=== PATIENT | female | born 1990 | race Caucasian/White ===

== ENCOUNTER 2016-06-08 18:39 | Emergency (ER) | payer BC, MEDICAID ==
[2016-06-08 19:04] VITALS: BP 140/96
[2016-06-08] MEDS ORDERED: Lidocaine 2% PF * 5 ML VIAL ONE (19:40)
--- NOTE | 2016-06-08 20:11 | UC ---
Laceration HPI - HPI Summary HPI Summary: 1800 WAS DRILLING HOLE AND DRILL KICKED BACK HIT LEFT UPPER LIP, HAS LACERATION - History Of Current Complaint Chief Complaint: UCLaceration Stated Complaint: LIP LACERATION Time Seen by Provider: 06/08/16 18:53 Hx Obtained From: Patient, Family/Butter Melter Laceration Location: Face Mechanism Of Injury: Blunt Trauma Onset/Duration: Sudden Onset, Lasting Hours, Still Present Severity: Mild - Allergies/Home Medications Allergies/Adverse Reactions: Allergies Allergy/AdvReac Type Severity Reaction Status Date / Time No Known Allergies Allergy Verified 06/08/16 18:59 Home Medications: Home Medications NK [No Home Medications Reported] 06/08/16 [History Confirmed 06/08/16] PMH/Surg Hx/FS Hx/Imm Hx Previously Healthy: Yes - Surgical History Surgical History: None - Family History Known Family History: Negative: Blood Disorder - Social History Occupation: Employed Full-time Lives: With Family Alcohol Use: Weekly Alcohol Amount: 1-2 glasses wine Substance Use Type: None Smoking Status (MU): Never Smoked Tobacco - Immunization History Most Recent Tetanus Shot: 2015 Review of Systems Constitutional: Negative Skin: Other - LACERATION LEFT UPPER LIP Eyes: Negative ENT: Negative Respiratory: Negative Cardiovascular: Negative Gastrointestinal: Negative Genitourinary: Negative Motor: Negative Neurovascular: Negative Musculoskeletal: Negative Neurological: Negative Psychological: Negative All Other Systems Reviewed And Are Negative: Yes Physical Exam Triage Information Reviewed: Yes Appearance: Well-Appearing, No Pain Distress, Well-Nourished Vital Signs: Initial Vital Signs Temp 98.1 F 06/08/16 18:59 Pulse 70 06/08/16 18:59 Resp 18 06/08/16 18:59 BP 140/96 06/08/16 18:59 Pulse Ox 97 06/08/16 18:59 Vital Signs Reviewed: Yes Eye Exam: Normal ENT Exam: Normal ENT: Positive: Normal ENT inspection, Hearing grossly normal, Pharynx normal, TMs normal Dental Exam: Normal Neck exam: Normal Neck: Positive: Supple, Nontender, No Lymphadenopathy Respiratory Exam: Normal Respiratory: Positive: Chest non-tender, Lungs clear, Normal breath sounds, No respiratory distress, No accessory muscle use Cardiovascular Exam: Normal Cardiovascular: Positive: RRR, No Murmur, Pulses Normal Abdominal Exam: Normal Musculoskeletal Exam: Normal Musculoskeletal: Positive: Strength Intact, ROM Intact Neurological Exam: Normal Neurological: Positive: Alert, Muscle Tone Normal Psychological Exam: Normal Skin: Positive: Other - 1CM [place] LACERATION LATERAL LEFT SUPERIOR LIP INVOLVING RENÉE BORDER Laceration Repair - Laceration Repair 1 Description: Linear Laceration Size After Repair: Length (cm) - 1, Width (mm) - 3, Depth (mm) - 4 Anesthesia Used: 2.0% Lido Cleansing Completed Via Routine Prep: Yes Irrigation With Pressure Irrigation Device: Yes Closure Material: Sutures Suture Of: Skin Suture Type: Prolene - 3 X 6-0 PROLENE Laceration Course/Dx - Differential Dx - Laceration/Wound Differental Diagnoses: Abrasion, Laceration Provider Diagnoses: LACERATION LEFT SUPERIOR LIP WITH REPAIR Discharge - Discharge Plan Condition: Stable Disposition: HOME Patient Education Materials: Care For Your Stitches (ED), Facial Laceration (ED ) Referrals: [facility] [place] [facility] [Outside] No Primary Care Phys,NOPCP [Primary Care Provider] - Additional Instructions: please have sutures removed in four days Images Head: 1 - LACERATION HERE
== END 2016-06-08 20:07 | disposition home or self-care (01) ==
LOC: UCEAST 18:39
DX: S01.511A Laceration without foreign body of lip, initial encounter (principal); W22.8XXA Striking against or struck by other objects, initial encounter; Y93.89 Activity, other specified; Y92.9 Unspecified place or not applicable
CPT/HCPCS: 12011; 99201; G0463

== ENCOUNTER 2016-06-12 14:05 | Emergency (ER) | payer MEDICAID ==
[2016-06-12 15:00] VITALS: BP 118/86
--- NOTE | 2016-06-12 15:35 | UC ---
HPI Wound/Suture Re-check - HPI Summary HPI Summary: LACERATION TO LEFT UPPER LIP. THREE SUTURES PLACED. NO COMPLICATIONS WITH INJURY - History Of Current Complaint Chief Complaint: UCLaceration Stated Complaint: SUTURE REMOVAL Time Seen by Provider: 06/12/16 15:04 Hx Obtained From: Patient, Family/Instrumentation Manager Onset/Duration: Sudden Onset, Lasting Days, Still Present Severity: Mild - Allergies/Home Medications Allergies/Adverse Reactions: Allergies Allergy/AdvReac Type Severity Reaction Status Date / Time No Known Allergies Allergy Verified 06/12/16 14:56 PMH/Surg Hx/FS Hx/Imm Hx Previously Healthy: Yes - Surgical History Surgical History: None - Family History Known Family History: Negative: Blood Disorder - Social History Occupation: Employed Full-time Alcohol Use: Weekly Alcohol Amount: 1-2 glasses wine Substance Use Type: None Smoking Status (MU): Never Smoked Tobacco - Immunization History Most Recent Tetanus Shot: 2015 Review of Systems Constitutional: Negative Skin: Other - LACERATION LEFT SUPERIOR LIP WOUND WELL APPROXIMATED; THREE SUTURES PLACED Eyes: Negative ENT: Negative Respiratory: Negative Cardiovascular: Negative Gastrointestinal: Negative Genitourinary: Negative Motor: Negative Neurovascular: Negative Musculoskeletal: Negative Neurological: Negative Psychological: Negative All Other Systems Reviewed And Are Negative: Yes Physical Exam Triage Information Reviewed: Yes Appearance: Well-Appearing, Well-Nourished Vital Signs: Initial Vital Signs Temp 98.4 F 06/12/16 14:56 Pulse 62 06/12/16 14:56 Resp 16 06/12/16 14:56 BP 118/86 06/12/16 14:56 Pulse Ox 100 06/12/16 14:56 Vital Signs Reviewed: Yes Eye Exam: Normal ENT Exam: Normal ENT: Positive: Normal ENT inspection, Hearing grossly normal, TMs normal Dental Exam: Normal Neck exam: Normal Neck: Positive: Supple, Nontender Respiratory Exam: Normal Respiratory: Positive: Chest non-tender, Lungs clear, Normal breath sounds, No respiratory distress Cardiovascular Exam: Normal Cardiovascular: Positive: RRR, No Murmur Abdominal Exam: Normal Abdomen Description: Positive: Nontender, No Organomegaly Musculoskeletal Exam: Normal Neurological Exam: Normal Psychological Exam: Normal Psychological: Positive: Normal Response To Family Skin Exam: Normal Course/Dx - Differential Dx - Laceration/Wound Differential Diagnoses: Suture Removal, Other Provider Diagnoses: SUTURE REMOVAL (3X 6-0 PROLENE) FROM LEFT SUPERIOR LATERAL LIP Discharge - Discharge Plan Condition: Stable Disposition: HOME Patient Education Materials: Facial Laceration (ED) Referrals: [facility] [place] [facility] [Outside] No Primary Care Phys,NOPCP [Primary Care Provider] -
== END 2016-06-12 15:42 | disposition home or self-care (01) ==
LOC: UCEAST 14:05
DX: Z48.02 Encounter for removal of sutures (principal)
CPT/HCPCS: 99211; G0463